=== PATIENT | female | born 1990 | race Caucasian/White ===

== ENCOUNTER 2016-10-31 11:48 | Inpatient (IN) | payer OTHER ==
[2016-10-31 12:26] LABS: HCT 36.8 % (37.0-47.0); HGB 12.3 g/dl (12.5-16.0); MCH 30.2 pg (25.0-31.0); MCHC 33.4 g/dL (32.0-36.0); MCV 90.4 fL (78.0-100.0); RBC 4.07 M/uL (4.20-5.40); RDW 13.1 % (11.5-14.0); WBC 12.9 K/uL (4.0-10.5)
[2016-10-31 12:27] LABS: BILIRUBIN NEGATIVE (NEGATIVE); BLOOD 1+ Ery/uL (NEGATIVE); CLARITY CLEAR (CLEAR); COLOR YELLOW (YELLOW); GLUCOSE (U) NORMAL (NORMAL); KETONE (U) NEGATIVE (NEGATIVE); LEUKOCYTES NEGATIVE Leu/uL (NEGATIVE); NITRITE NEGATIVE (NEGATIVE); PROTEIN 2+ mg/dL (NEGATIVE); UROBILINOGEN 0.2 mg/dL (0.2-1.0)
[2016-10-31 12:45] LABS: ALBUMIN 3.2 g/dL (3.5-5.0); BILIRUBIN - TOTAL 0.2 mg/dL (0.1-1.0); CREATININE 0.6 mg/dL (0.5-1.0); GLOBULIN (CALCULATION) 2.4 g/dL (2.2-4.2); POTASSIUM 4.5 mmol/L (3.5-5.1); TOTAL PROTEIN 5.6 g/dL (6.4-8.3); URIC ACID 5.4 mg/dL (2.4-5.7)
[2016-10-31 12:56] LABS: BACTERIA 1+
[2016-11-01 06:04] LABS: HCT 35.4 % (37.0-47.0); HGB 11.8 g/dl (12.5-16.0); MCH 30.3 pg (25.0-31.0); MCHC 33.3 g/dL (32.0-36.0); MCV 90.8 fL (78.0-100.0); MPV 10.9 fL (6.0-9.5); RBC 3.9 M/uL (4.20-5.40); RDW 13.2 % (11.5-14.0); WBC 15.7 K/uL (4.0-10.5)
[2016-11-01 06:21] LABS: ALBUMIN 2.9 g/dL (3.5-5.0); BILIRUBIN - TOTAL 0.2 mg/dL (0.1-1.0); CREATININE 0.8 mg/dL (0.5-1.0); GLOBULIN (CALCULATION) 2.9 g/dL (2.2-4.2); POTASSIUM 4.1 mmol/L (3.5-5.1); TOTAL PROTEIN 5.8 g/dL (6.4-8.3)
[2016-11-02 06:00] LABS: HCT 28.6 % (37.0-47.0); HGB 9.4 g/dl (12.5-16.0); MCH 30.5 pg (25.0-31.0); MCHC 32.9 g/dL (32.0-36.0); MCV 92.9 fL (78.0-100.0); RBC 3.08 M/uL (4.20-5.40); RDW 13.3 % (11.5-14.0); WBC 19.3 K/uL (4.0-10.5)
== END 2016-11-03 17:30 | disposition home or self-care (01) | DRG 765 ==
LOC: FOB 11:48
PROVIDERS: ADMIT Obstetrics & Gynecology
PROC: 4A1HX4Z Monitoring of Products of Conception, Cardiac Electrical Activity, External Approach (ICD-10-PCS; principal; 2016-10-31)
PROC: 3E0P7GC Introduction of Other Therapeutic Substance into Female Reproductive, Via Natural or Artificial Opening (ICD-10-PCS; 2016-10-31)
PROC: 10907ZC Drainage of Amniotic Fluid, Therapeutic from Products of Conception, Via Natural or Artificial Opening (ICD-10-PCS; 2016-10-31)
PROC: 10D00Z1 Extraction of Products of Conception, Low, Open Approach (ICD-10-PCS; 2016-11-01)
DX: O13.4 Gestational [pregnancy-induced] hypertension without significant proteinuria, complicating childbirth (principal); D62 Acute posthemorrhagic anemia; Z3A.37 37 weeks gestation of pregnancy; Z37.0 Single live birth; O76 Abnormality in fetal heart rate and rhythm complicating labor and delivery; O99.02 Anemia complicating childbirth; F41.9 Anxiety disorder, unspecified; R60.9 Edema, unspecified; O26.03 Excessive weight gain in pregnancy, third trimester; I78.1 Nevus, non-neoplastic; O99.824 Streptococcus B carrier state complicating childbirth
CPT/HCPCS: 36415; 80053; 81001; 83615; 84550; 88307; 90707; J0456; J0690; J1170; J1885; J2274; J2300; J2405; J2540; J3010

== ENCOUNTER 2016-11-06 14:14 | Day surgery (SDCO) | payer OTHER ==
[2016-11-06 14:49] LABS: HCT 29.5 % (37.0-47.0); HGB 9.7 g/dl (12.5-16.0); MCH 30.6 pg (25.0-31.0); MCHC 32.9 g/dL (32.0-36.0); MCV 93.1 fL (78.0-100.0); MPV 9.4 fL (6.0-9.5); RBC 3.17 M/uL (4.20-5.40); RDW 13.1 % (11.5-14.0); WBC 11.8 K/uL (4.0-10.5)
[2016-11-06 15:20] LABS: ALBUMIN 3.1 g/dL (3.5-5.0); BILIRUBIN - TOTAL 0.2 mg/dL (0.1-1.0); CREATININE 0.8 mg/dL (0.5-1.0); GLOBULIN (CALCULATION) 2.9 g/dL (2.2-4.2); POTASSIUM 4.1 mmol/L (3.5-5.1); URIC ACID 6.9 mg/dL (2.4-5.7)
[2016-11-07 04:36] LABS: HCT 32.3 % (37.0-47.0); HGB 10.8 g/dl (12.5-16.0); MCH 30.8 pg (25.0-31.0); MCHC 33.4 g/dL (32.0-36.0); MPV 9.6 fL (6.0-9.5); RBC 3.51 M/uL (4.20-5.40); RDW 13.3 % (11.5-14.0); WBC 13.1 K/uL (4.0-10.5)
[2016-11-07 04:54] LABS: ALBUMIN 3.4 g/dL (3.5-5.0); BILIRUBIN - TOTAL 0.2 mg/dL (0.1-1.0); CREATININE 0.8 mg/dL (0.5-1.0); GLOBULIN (CALCULATION) 2.5 g/dL (2.2-4.2); POTASSIUM 3.9 mmol/L (3.5-5.1); TOTAL PROTEIN 5.9 g/dL (6.4-8.3)
[2016-11-07 18:40] LABS: CREATININE 0.8 mg/dL (0.5-1.0)
== END 2016-11-08 13:08 | disposition home or self-care (01) ==
LOC: FTCU 14:14
PROVIDERS: ADMIT Obstetrics & Gynecology
DX: O14.95 Unspecified pre-eclampsia, complicating the puerperium (principal); R06.02 Shortness of breath; O99.345 Other mental disorders complicating the puerperium; F41.9 Anxiety disorder, unspecified; O99.53 Diseases of the respiratory system complicating the puerperium; J81.1 Chronic pulmonary edema; Z80.3 Family history of malignant neoplasm of breast; Z83.49 Family history of other endocrine, nutritional and metabolic diseases; Z82.49 Family history of ischemic heart disease and other diseases of the circulatory system; Z79.899 Other long term (current) drug therapy; Z98.890 Other specified postprocedural states
CPT/HCPCS: 36415; 71020; 80053; 82575; 83615; 84156; 84550; 93970; G0378; J1170; J2405; J3475